=== PATIENT | male | born 1985 | race African-American/Black ===

== ENCOUNTER 2017-07-31 12:06 | Emergency (ER) | payer SELFPAY ==
[2017-07-31 12:14] VITALS: BP 147/93; PULSE 78; TEMP 98; BMI 26.9
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
== END 2017-07-31 13:10 | disposition home or self-care (01) ==
LOC: JERFT 12:06
DX: S13.4XXA Sprain of ligaments of cervical spine, initial encounter (principal); G44.309 Post-traumatic headache, unspecified, not intractable; F07.81 Postconcussional syndrome; V49.59XA Passenger injured in collision with other motor vehicles in traffic accident, initial encounter; W22.12XA Striking against or struck by front passenger side automobile airbag, initial encounter; Y92.488 Other paved roadways as the place of occurrence of the external cause; Y93.89 Activity, other specified; Y99.8 Other external cause status
CPT/HCPCS: 99281-25